=== PATIENT | female | born 1980 | race Two or more races ===

== ENCOUNTER → 2023-03-10 09:01 | Outpatient (REF) | payer OTHER, SELFPAY ==
[2023-03-10 10:40] LABS: ALT (SGPT) 21 U/L (0-35); AST (SGOT) 25 U/L (14-36); Albumin 3.8 g/dl (3.5-5.0); Alkaline Phosphatase 79 U/L (38-126); Blood Urea Nitrogen 16 mg/dl (7-17); Calcium 9.1 mg/dl (8.4-10.2); Carbon Dioxide 25 mmol/L (22-30); Chloride 103 mmol/L (98-107); Glucose 106 mg/dl (70-99); HDL Cholesterol 72 mg/dl; LDL Cholesterol, Calculated 183 mg/dl; Potassium 4.1 mmol/L (3.5-5.1); Sodium 135 mmol/L (135-145); Total Bilirubin 0.8 mg/dl (0.2-1.3); Total Cholesterol 269 mg/dl (50-199); Total Protein 6.8 g/dl (6.3-8.2); Triglyceride 71 mg/dl (10-149); Very Low Density Lipoprotein 14 mg/dl (0-30); eGFR > 60.00
[2023-03-10 10:56] LABS: Vitamin D, 25-OH*** 31.5 ng/mL (30-80)
[2023-03-10 11:03] LABS: Glycohemoglobin (HgbA1c) 5.9 % (4.0-5.6)
== END ==
LOC: REG 09:01
PROVIDERS: ATTENDING PHYSICIAN Nurse Practitioner Adult Health
DX: R73.03 Prediabetes (principal); E78.2 Mixed hyperlipidemia; E55.9 Vitamin D deficiency, unspecified
CPT/HCPCS: 36415; 80053; 80061; 82306; 83036

== ENCOUNTER → 2023-09-10 07:42 | Outpatient (REF) | payer OTHER, SELFPAY ==
[2023-09-10 09:27] LABS: Hematocrit 36.8 % (37.0-47.0); Hemoglobin 12.1 g/dL (12.0-16.0); Mean Corp Hgb Conc. 32.9 g/dL (33.0-37.0); Mean Corpuscular Hgb 27.5 pg (27.0-31.0); Mean Corpuscular Volume 83.6 fL (81.0-99.0); Mean Platelet Volume 10.4 fL (7.4-10.4); Platelet Count 192 10^3/uL (130-400); Red Cell Dist. Width 13.4 % (11.5-14.5); White Blood Cell Count 6.1 10^3/uL (4.8-10.8)
[2023-09-10 10:56] LABS: Glycohemoglobin (HgbA1c) 5.7 % (4.0-5.6)
[2023-09-10 11:42] LABS: Blood Urea Nitrogen 10 mg/dl (7-17); Calcium 9.1 mg/dl (8.4-10.2); Carbon Dioxide 22 mmol/L (22-30); Chloride 107 mmol/L (98-107); Glucose 104 mg/dl (70-99); Potassium 4.2 mmol/L (3.5-5.1); Sodium 137 mmol/L (135-145); eGFR > 60.00
== END ==
LOC: REG 07:42
PROVIDERS: ATTENDING PHYSICIAN Nurse Practitioner Adult Health
DX: R73.03 Prediabetes (principal); D64.9 Anemia, unspecified
CPT/HCPCS: 36415; 80048; 83036; 85027

== ENCOUNTER → 2024-03-15 07:48 | Outpatient (REF) | payer OTHER, SELFPAY ==
[2024-03-15 09:02] LABS: HDL Cholesterol 76 mg/dl; LDL Cholesterol, Calculated 154 mg/dl; Total Cholesterol 256 mg/dl (50-199); Triglyceride 133 mg/dl (10-149); Very Low Density Lipoprotein 26 mg/dl (0-30)
[2024-03-15 10:49] LABS: Vitamin D, 25-OH*** 36.3 ng/mL (30-80)
[2024-03-15 12:15] LABS: Glycohemoglobin (HgbA1c) 5.8 % (4.0-5.6)
== END ==
LOC: CLINIC 07:48
PROVIDERS: ATTENDING PHYSICIAN Nurse Practitioner Adult Health
DX: R73.03 Prediabetes (principal); E78.2 Mixed hyperlipidemia; E55.9 Vitamin D deficiency, unspecified
CPT/HCPCS: 36415; 80061; 82306; 83036

== ENCOUNTER → 2024-09-12 07:02 | Outpatient (REF) | payer OTHER, SELFPAY ==
[2024-09-12 08:19] LABS: Hematocrit 35.5 % (37.0-47.0); Hemoglobin 11.5 g/dL (12.0-16.0); Mean Corp Hgb Conc. 32.4 g/dL (33.0-37.0); Mean Corpuscular Volume 84.5 fL (81.0-99.0); Platelet Count 199 10^3/uL (130-400); Red Cell Dist. Width 13.3 % (11.5-14.5)
[2024-09-12 10:15] LABS: Glycohemoglobin (HgbA1c) 5.7 % (4.0-5.6)
== END ==
LOC: CLINIC 07:02
PROVIDERS: ATTENDING PHYSICIAN Nurse Practitioner Adult Health
DX: R73.03 Prediabetes (principal); D64.9 Anemia, unspecified
CPT/HCPCS: 36415; 83036; 85027

== ENCOUNTER → 2024-11-17 11:36 | Outpatient (REF) | payer OTHER, SELFPAY ==
[2024-11-22 05:18] LABS: HPV, High Risk Not Detected; HPV, High Risk Source Cervical
== END ==
LOC: CLINIC 11:36
PROVIDERS: ATTENDING PHYSICIAN Nurse Practitioner Adult Health
DX: Z12.4 Encounter for screening for malignant neoplasm of cervix (principal)
CPT/HCPCS: 87624; G0123